=== PATIENT | male | born 1950 | race Two or more races ===

== ENCOUNTER → 2017-12-28 | Outpatient (CLI) | payer OTHER ==
[~2017-12-28] MED LIST: GLIP-116 PO; LISI-646 PO; MILK87.5 OR; SERT-274 PO
[2017-12-28 11:13] LABS: Basophils # (auto) 0.1 uL; Basophils % (auto) 1.2 % (0.0-2.0); Eosinophils # (auto) 0.3 uL; Hematocrit 45.8 % (41.0-53.0); Hemoglobin 15.7 g/dL (13.5-17.5); Lymphocytes # (auto) 1.1 uL; Mean Corpuscular Hemoglobin 34.7 pg (28.0-32.0); Mean Corpuscular Hgb Conc. 34.2 g/dL (32.0-36.0)
[2017-12-28 11:15] LABS: Eosinophils % (auto) 5.7 % (0.0-7.0); Lymphocytes % (auto) 20.3 % (10.0-50.0); Mean Corpuscular Volume 101.3 fL (80.0-100.0); Monocytes # (auto) 0.7 uL; Monocytes % (auto) 12.7 % (0.0-12.0); Neutrophils # (auto) 3.2 uL; Neutrophils % (auto) 60.1 % (37.0-80.0); Platelet Count (auto) 165 10^3/uL (140-450); Red Blood Cells 4.52 10^6/uL (4.5-5.90); White Blood Cell 5.3 10^3/uL (4.4-10.8)
[2017-12-28 11:59] LABS: Albumin 3.9 g/dL (3.4-5.0); BUN/Creatinine Ratio 17.6; Bilirubin, Total 1.1 mg/dL (0.2-1.0); Calcium 8.5 mg/dL (8.5-10.1); Potassium 4.5 mmol/L (3.5-5.1); Total Protein 7.4 g/dL (6.4-8.2)
[2017-12-28 12:08] LABS: Free T4 (Free Thyroxine) 1.1 ng/dL (0.89-1.76)
== END | disposition home or self-care (01) ==
LOC: LAB 10:52
PROVIDERS: ATTEND Internal Medicine
DX: I10 Essential (primary) hypertension (principal); E11.9 Type 2 diabetes mellitus without complications; Z79.899 Other long term (current) drug therapy
CPT/HCPCS: 36415; 80053; 80061; 82607; 83036; 84439; 84443; 85025; 85652

== ENCOUNTER 2020-09-27 14:00 | Inpatient (IN) | payer OTHER ==
[~2020-09-27] VITALS: Ht 172.7 cm; Wt 67.1 kg
[~2020-09-27 14:00] MED LIST changes: -GLIP-116 PO; +GLIP10TA9 PO
[2020-09-27] MEDS ORDERED: REMDESIVIR PER PHARMACY 0 ML IV SCH ×2 (14:30→17:15)
[2020-09-27] MEDS ORDERED: AZITHROMYCIN 500MG/ 250ML 250 ML IV ONE (14:30)
[2020-09-27] MEDS ORDERED: methylPREDNISolone SOD SUCC 125 MG/2 ML VL IV ONE (14:30)
[2020-09-27 15:08] LABS: Albumin 1.9 g/dL (3.4-5.0); Calcium 8.8 mg/dL (8.5-10.1); Potassium 4.9 mmol/L (3.5-5.1)
[2020-09-27 15:13] LABS: Lactic Acid w/Reflex 2.2 mmol/L (0.4-2.0)
[2020-09-27 15:18] LABS: BUN/Creatinine Ratio 19.3; Bilirubin, Total 0.9 mg/dL (0.2-1.0); CRP High Sensitivity 17.6 mg/dL (< 0.3); Total Protein 7.1 g/dL (6.4-8.2)
[2020-09-27 15:58] LABS: Basophils # (auto) 0.1 10 ^3/uL (0-0.2); Basophils % (auto) 0.4 % (0.0-2.0); Eosinophils # (auto) 0 10 ^3/uL (0-0.8); Eosinophils % (auto) 0.3 % (0.0-7.0); Hemoglobin 15.5 g/dL (13.5-17.5); Mean Corpuscular Hemoglobin 34.7 pg (28.0-32.0)
[2020-09-27 16:00] LABS: Hematocrit 44.8 % (41.0-53.0); Lymphocytes # (auto) 0.7 10 ^3/uL (0.4-5.4); Lymphocytes % (auto) 4.3 % (10.0-50.0); Mean Corpuscular Hgb Conc. 34.5 g/dL (32.0-36.0); Mean Corpuscular Volume 100.3 fL (80.0-100.0); Monocytes # (auto) 1.2 10 ^3/uL (0-1.3); Monocytes % (auto) 7.2 % (0.0-12.0); Neutrophils % (auto) 87.8 % (37.0-80.0); Nucleated Red Blood Cells % 0.2 %; Platelet Count (auto) 144 10^3/uL (140-450); Red Blood Cells 4.46 10^6/uL (4.5-5.90); White Blood Cell 15.9 10^3/uL (4.4-10.8)
[2020-09-27] MEDS ORDERED: ASCORBIC ACID 500 MG TAB PO ONE (16:45)
[2020-09-27] MEDS ORDERED: NITROGLYCERIN 0.4 MG SL TAB SL PRN (16:45)
[2020-09-27] MEDS ORDERED: CHOLECALCIFEROL (VITD3) 2,000 UNIT CAP PO ONE (16:45)
[2020-09-27] MEDS ORDERED: ZINC SULFATE 220mg CAP or TAB PO ONE (16:45)
[2020-09-27] MEDS ORDERED: MORPHINE SULF INJ 2 MG/ML SYRINGE 1ML IV PRN ×2 (16:45→17:15)
[2020-09-27] MEDS ORDERED: ONDANSETRON HCL 4 MG/2 ML VIAL IV PRN (17:15)
[2020-09-27] MEDS ORDERED: LACTULOSE 20Gm/30ML SOLN PO PRN (17:15)
[2020-09-27] MEDS ORDERED: TEMAZEPAM 15 MG CAP PO PRN (17:15)
[2020-09-27] MEDS ORDERED: DEXTROSE (50%) 50ML SYRG IV PRN (17:15)
[2020-09-27] MEDS ORDERED: ACETAMINOPHEN 500 MG TAB PO PRN (17:15)
[2020-09-27] MEDS ORDERED: LEVALBUTEROL HCL 1.25 MG/3 ML NEB NEB PRN (17:15)
[2020-09-27] MEDS ORDERED: traMADol HCL 50 MG TAB PO PRN (17:15)
[2020-09-27] MEDS: SODIUM CHLORIDE 0.9% 1,000 ML IV SCH (18:36)
[2020-09-27] MEDS: InsuLIN REG 1unit/0.01ml Soln (100units/ml) SC SCH (22:25)
[2020-09-27] MEDS: CLINDAMYCIN 600MG IV 50 ML IV SCH (22:37)
[2020-09-27] MEDS: FAMOTIDINE 20 MG TAB PO SCH (22:38)
[2020-09-27] MEDS: ENOXAPARIN SOD 80 MG/0.8ML SYRINGE SC SCH (22:38)
[2020-09-27] MEDS: ACCU-CHEK COMFORT CURVE STRIP VI SCH (22:38)
[2020-09-28] MEDS: SODIUM CHLORIDE 0.9% 1,000 ML IV SCH ×3 (03:30→21:34)
[2020-09-28 06:26] LABS: Basophils # (auto) 0 10 ^3/uL (0-0.2); Basophils % (auto) 0.3 % (0.0-2.0); Eosinophils # (auto) 0 10 ^3/uL (0-0.8); Lymphocytes # (auto) 0.4 10 ^3/uL (0.4-5.4); Mean Corpuscular Hemoglobin 34.6 pg (28.0-32.0); Mean Corpuscular Hgb Conc. 34.8 g/dL (32.0-36.0); Neutrophils % (auto) 91.6 % (37.0-80.0); White Blood Cell 11.2 10^3/uL (4.4-10.8)
[2020-09-28 06:35] LABS: Eosinophils % (auto) 0.1 % (0.0-7.0); Hematocrit 40.5 % (41.0-53.0); Hemoglobin 14.1 g/dL (13.5-17.5); Mean Corpuscular Volume 99.4 fL (80.0-100.0); Monocytes # (auto) 0.4 10 ^3/uL (0-1.3); Neutrophils # (auto) 10.3 10 ^3/uL (1.6-8.6); Nucleated Red Blood Cells % 0.1 %; Platelet Count (auto) 113 10^3/uL (140-450); Red Blood Cells 4.08 10^6/uL (4.5-5.90); Red Cell Distribution Width 13.1 % (11.8-14.3)
[2020-09-28 06:48] LABS: Albumin 1.7 g/dL (3.4-5.0); Calcium 8.5 mg/dL (8.5-10.1); Potassium 4.6 mmol/L (3.5-5.1)
[2020-09-28 06:51] LABS: BUN/Creatinine Ratio 24.4; Bilirubin, Total 0.5 mg/dL (0.2-1.0); Total Protein 6.3 g/dL (6.4-8.2)
[2020-09-28] MEDS: CLINDAMYCIN 600MG IV 50 ML IV SCH ×3 (07:06→21:34)
[2020-09-28] MEDS: BUDESONIDE (INHALATION) 180 MCG IH IN SCH ×3 (07:33→20:29)
[2020-09-28] MEDS: ACCU-CHEK COMFORT CURVE STRIP VI SCH ×4 (08:10→21:33)
[2020-09-28] MEDS: InsuLIN REG 1unit/0.01ml Soln (100units/ml) SC SCH ×4 (08:21→21:35)
[2020-09-28] MEDS: DexAMETHasone SOD PHOS 10MG/1ML VIAL INJ IV SCH (08:44)
[2020-09-28] MEDS: levoFLOXacin 500MG 100 ML IV SCH (08:44)
[2020-09-28] MEDS: ASCORBIC ACID 1,000 MG TAB PO SCH (08:45)
[2020-09-28] MEDS: ZINC SULFATE 220mg CAP or TAB PO SCH (08:45)
[2020-09-28] MEDS: FAMOTIDINE 20 MG TAB PO SCH ×2 (08:45→21:33)
[2020-09-28] MEDS: ENOXAPARIN SOD 80 MG/0.8ML SYRINGE SC SCH ×2 (08:46→21:33)
[2020-09-28] MEDS: CHOLECALCIFEROL (VITD3) 2,000 UNIT CAP PO SCH (08:46)
[2020-09-28] MEDS ORDERED: DOXY100C2 PO (13:05)
[2020-09-28] MEDS ORDERED: ENAL5TAB10 PO (13:05)
[2020-09-28] MEDS ORDERED: DEXA6TAB PO (13:05)
[2020-09-28] MEDS ORDERED: ASCO-75 PO (13:05)
[2020-09-28] MEDS ORDERED: ZINC220C8 PO (13:05)
[2020-09-28] MEDS ORDERED: REMDESIVIR 200 MG in NS 210ml LOADING DOSE ADULT IV ONE (15:00)
[2020-09-28 16:00] VITALS: BP 120/59
[2020-09-28] MEDS ORDERED: predniSONE 20 MG TAB PO ONE (19:00)
[2020-09-29] VITALS: BP 123/73
[2020-09-29] MEDS ORDERED: predniSONE 20 MG TAB PO ONE ×2 (01:00→07:00)
[2020-09-29] MEDS: InsuLIN REG 1unit/0.01ml Soln (100units/ml) SC SCH ×4 (05:47→21:44)
[2020-09-29] MEDS: CLINDAMYCIN 600MG IV 50 ML IV SCH ×3 (05:48→21:43)
[2020-09-29] MEDS: ACCU-CHEK COMFORT CURVE STRIP VI SCH ×4 (05:48→21:43)
[2020-09-29] MEDS ORDERED: diphenhdrAMINE HCL 25 MG CAP PO ONE (07:00)
[2020-09-29 08:00] VITALS: BP 120/76
[2020-09-29] MEDS: levoFLOXacin 500MG 100 ML IV SCH (08:59)
[2020-09-29] MEDS: DexAMETHasone SOD PHOS 10MG/1ML VIAL INJ IV SCH (08:59)
[2020-09-29] MEDS: ZINC SULFATE 220mg CAP or TAB PO SCH (09:00)
[2020-09-29] MEDS: CHOLECALCIFEROL (VITD3) 2,000 UNIT CAP PO SCH (09:00)
[2020-09-29] MEDS: FAMOTIDINE 20 MG TAB PO SCH ×2 (09:00→21:43)
[2020-09-29] MEDS: ASCORBIC ACID 1,000 MG TAB PO SCH (09:00)
[2020-09-29] MEDS: ENOXAPARIN SOD 80 MG/0.8ML SYRINGE SC SCH ×2 (09:01→21:43)
[2020-09-29] MEDS: SODIUM CHLORIDE 0.9% 1,000 ML IV SCH ×2 (09:01→18:45)
[2020-09-29] MEDS: BUDESONIDE (INHALATION) 180 MCG IH IN SCH ×2 (10:29→19:25)
[2020-09-29 12:44] LABS: Albumin 1.7 g/dL (3.4-5.0); Calcium 8.1 mg/dL (8.5-10.1); Potassium 4.4 mmol/L (3.5-5.1)
[2020-09-29 12:49] LABS: BUN/Creatinine Ratio 29.9; Bilirubin, Total 0.5 mg/dL (0.2-1.0); Total Protein 5.9 g/dL (6.4-8.2)
[2020-09-29] MEDS: REMDESIVIR 100mg 100 MG in SODIUM CHL 0.9% 230 ML IV SCH (15:40)
[2020-09-29 16:00] VITALS: BP 135/66
[2020-09-30] VITALS: BP 124/55
[2020-09-30] MEDS: CLINDAMYCIN 600MG IV 50 ML IV SCH ×3 (05:32→21:51)
[2020-09-30] MEDS: SODIUM CHLORIDE 0.9% 1,000 ML IV SCH ×2 (05:32→18:01)
[2020-09-30] MEDS: InsuLIN REG 1unit/0.01ml Soln (100units/ml) SC SCH ×4 (06:29→21:52)
[2020-09-30] MEDS: ACCU-CHEK COMFORT CURVE STRIP VI SCH ×4 (06:29→21:51)
[2020-09-30 07:59] VITALS: BP 118/64
[2020-09-30] MEDS: BUDESONIDE (INHALATION) 180 MCG IH IN SCH ×2 (08:10→19:07)
[2020-09-30 08:21] LABS: Potassium 4.3 mmol/L (3.5-5.1)
[2020-09-30 08:27] LABS: Albumin 1.8 g/dL (3.4-5.0); Bilirubin, Total 0.6 mg/dL (0.2-1.0); Calcium 8.6 mg/dL (8.5-10.1); Total Protein 6.1 g/dL (6.4-8.2)
[2020-09-30] MEDS: levoFLOXacin 500MG 100 ML IV SCH (09:58)
[2020-09-30] MEDS: FAMOTIDINE 20 MG TAB PO SCH ×2 (09:58→21:51)
[2020-09-30] MEDS: ZINC SULFATE 220mg CAP or TAB PO SCH (09:58)
[2020-09-30] MEDS: DexAMETHasone SOD PHOS 10MG/1ML VIAL INJ IV SCH (09:58)
[2020-09-30] MEDS: ASCORBIC ACID 1,000 MG TAB PO SCH (09:58)
[2020-09-30] MEDS: ENOXAPARIN SOD 80 MG/0.8ML SYRINGE SC SCH ×2 (09:59→21:51)
[2020-09-30] MEDS: CHOLECALCIFEROL (VITD3) 2,000 UNIT CAP PO SCH (09:59)
[2020-09-30] MEDS: REMDESIVIR 100mg 100 MG in SODIUM CHL 0.9% 230 ML IV SCH (15:42)
[2020-09-30 16:00] VITALS: BP 111/47
[2020-10-01] VITALS: BP 118/55
[2020-10-01] MEDS: SODIUM CHLORIDE 0.9% 1,000 ML IV SCH ×2 (01:40→14:49)
[2020-10-01] MEDS: CLINDAMYCIN 600MG IV 50 ML IV SCH ×2 (06:34→14:50)
[2020-10-01] MEDS: InsuLIN REG 1unit/0.01ml Soln (100units/ml) SC SCH ×4 (06:34→22:00)
[2020-10-01] MEDS: ACCU-CHEK COMFORT CURVE STRIP VI SCH ×4 (06:34→22:00)
[2020-10-01 06:41] LABS: Basophils # (auto) 0 10 ^3/uL (0-0.2); Basophils % (auto) 0.2 % (0.0-2.0); Eosinophils # (auto) 0 10 ^3/uL (0-0.8); Eosinophils % (auto) 0.4 % (0.0-7.0); Hematocrit 41.1 % (41.0-53.0); Lymphocytes # (auto) 0.5 10 ^3/uL (0.4-5.4); Lymphocytes % (auto) 4.1 % (10.0-50.0); Mean Corpuscular Volume 99.9 fL (80.0-100.0); Monocytes # (auto) 0.6 10 ^3/uL (0-1.3); Monocytes % (auto) 5.1 % (0.0-12.0); Neutrophils # (auto) 11.4 10 ^3/uL (1.6-8.6); Neutrophils % (auto) 90.2 % (37.0-80.0); Nucleated Red Blood Cells % 0.1 %; Platelet Count (auto) 115 10^3/uL (140-450); Red Blood Cells 4.11 10^6/uL (4.5-5.90); Red Cell Distribution Width 13.1 % (11.8-14.3); White Blood Cell 12.7 10^3/uL (4.4-10.8)
[2020-10-01] MEDS: BUDESONIDE (INHALATION) 180 MCG IH IN SCH ×2 (06:45→19:19)
[2020-10-01 07:01] LABS: INR 1.29 (0.9-1.15); Partial Thromboplastin Time 33.2 sec (23.0-31.2)
[2020-10-01 07:13] LABS: Potassium 3.8 mmol/L (3.5-5.1)
[2020-10-01 07:21] LABS: Albumin 1.7 g/dL (3.4-5.0); Bilirubin, Total 0.6 mg/dL (0.2-1.0); Calcium 7.7 mg/dL (8.5-10.1); Magnesium 1.9 mg/dL (1.6-2.6); Phosphorus 2.6 mg/dL (2.5-4.90); Total Protein 5.6 g/dL (6.4-8.2)
[2020-10-01 08:00] VITALS: BP 127/81
[2020-10-01] MEDS: levoFLOXacin 500MG 100 ML IV SCH (09:39)
[2020-10-01] MEDS: DexAMETHasone SOD PHOS 10MG/1ML VIAL INJ IV SCH (09:39)
[2020-10-01] MEDS: ZINC SULFATE 220mg CAP or TAB PO SCH (09:39)
[2020-10-01] MEDS: ENOXAPARIN SOD 80 MG/0.8ML SYRINGE SC SCH ×2 (09:40→22:00)
[2020-10-01] MEDS: CHOLECALCIFEROL (VITD3) 2,000 UNIT CAP PO SCH (09:40)
[2020-10-01] MEDS: ASCORBIC ACID 1,000 MG TAB PO SCH (09:40)
[2020-10-01] MEDS: FAMOTIDINE 20 MG TAB PO SCH (10:00)
[2020-10-01] MEDS ORDERED: INSULIN LANTUS (GLARGINE) 1 /0.01ml (100units/ml) SC ONE (10:45)
[2020-10-01 16:00] VITALS: BP 113/60
[2020-10-01] MEDS: REMDESIVIR 100mg 100 MG in SODIUM CHL 0.9% 230 ML IV SCH (16:48)
[2020-10-01] MEDS ORDERED: POLYETHYLENE GLYCOL 17 GM PWDR PO ONE (17:15)
[2020-10-01] MEDS ORDERED: ALBUTEROL SULF HFA 90MCG INH 200DOSE IN SCH (22:00)
[2020-10-02] VITALS: BP 125/69
[2020-10-02] MEDS: FAMOTIDINE 20 MG TAB PO SCH ×3 (04:09→22:26)
[2020-10-02 05:36] LABS: Urine Amorphous Crystal FEW /hpf (None Seen); Urine Bacteria FEW /hpf (None Seen); Urine Blood Negative /uL (Negative); Urine Specific Gravity 1.024 (1.001-1.035); Urine WBC 1 /hpf (0 - 3)
[2020-10-02 06:52] LABS: Basophils # (auto) 0.1 10 ^3/uL (0-0.2); Eosinophils # (auto) 0.1 10 ^3/uL (0-0.8); Eosinophils % (auto) 0.9 % (0.0-7.0); Lymphocytes # (auto) 0.6 10 ^3/uL (0.4-5.4); Lymphocytes % (auto) 4.2 % (10.0-50.0); Monocytes # (auto) 0.7 10 ^3/uL (0-1.3)
[2020-10-02 06:54] LABS: Basophils % (auto) 0.7 % (0.0-2.0); Hematocrit 40.9 % (41.0-53.0); Mean Corpuscular Hemoglobin 33.9 pg (28.0-32.0); Mean Corpuscular Hgb Conc. 34.2 g/dL (32.0-36.0); Mean Corpuscular Volume 99.3 fL (80.0-100.0); Neutrophils # (auto) 11.9 10 ^3/uL (1.6-8.6); Neutrophils % (auto) 89.2 % (37.0-80.0); Platelet Count (auto) 125 10^3/uL (140-450); Red Blood Cells 4.12 10^6/uL (4.5-5.90); Red Cell Distribution Width 12.9 % (11.8-14.3); White Blood Cell 13.4 10^3/uL (4.4-10.8)
[2020-10-02] MEDS: InsuLIN REG 1unit/0.01ml Soln (100units/ml) SC SCH ×4 (06:54→22:27)
[2020-10-02] MEDS: ACCU-CHEK COMFORT CURVE STRIP VI SCH ×4 (06:55→22:27)
[2020-10-02 07:09] LABS: Albumin 1.7 g/dL (3.4-5.0); Potassium 4.2 mmol/L (3.5-5.1)
[2020-10-02 07:25] LABS: Bilirubin, Total 0.7 mg/dL (0.2-1.0); CRP High Sensitivity 8.39 mg/dL (< 0.3); Total Protein 5.6 g/dL (6.4-8.2)
[2020-10-02] MEDS: BUDESONIDE (INHALATION) 180 MCG IH IN SCH ×2 (07:28→19:30)
[2020-10-02 08:00] VITALS: BP 127/72
[2020-10-02] MEDS: POLYETHYLENE GLYCOL 17 GM PWDR PO SCH (10:00)
[2020-10-02] MEDS: DexAMETHasone SOD PHOS 10MG/1ML VIAL INJ IV SCH (10:35)
[2020-10-02] MEDS: ERGOCALCIFEROL 50,000 UNIT(1.25MG) CAP PO SCH (10:36)
[2020-10-02] MEDS: ASCORBIC ACID 1,000 MG TAB PO SCH (10:36)
[2020-10-02] MEDS: ENOXAPARIN SOD 80 MG/0.8ML SYRINGE SC SCH ×2 (10:36→22:26)
[2020-10-02] MEDS: levoFLOXacin 500MG 100 ML IV SCH (10:36)
[2020-10-02] MEDS: ZINC SULFATE 220mg CAP or TAB PO SCH (10:36)
[2020-10-02] MEDS: CHOLECALCIFEROL (VITD3) 2,000 UNIT CAP PO SCH (10:36)
[2020-10-02] MEDS ORDERED: FUROSEMIDE 40 MG/4 ML VIAL IV ONE (12:00)
[2020-10-02 12:14] LABS: Cholesterol 99 mg/dL (< 200)
[2020-10-02 12:17] LABS: HDL Cholesterol 38 mg/dL (40-59); LDL Cholesterol 52 mg/dL (< 100); Triglycerides 46 mg/dL (< 150)
[2020-10-02] MEDS: REMDESIVIR 100mg 100 MG in SODIUM CHL 0.9% 230 ML IV SCH (15:00)
[2020-10-02 16:00] VITALS: BP 108/79
[2020-10-03] VITALS: BP 122/76
[2020-10-03] MEDS: InsuLIN REG 1unit/0.01ml Soln (100units/ml) SC SCH ×4 (06:52→22:10)
[2020-10-03] MEDS: ACCU-CHEK COMFORT CURVE STRIP VI SCH ×4 (06:53→22:09)
[2020-10-03] MEDS: BUDESONIDE (INHALATION) 180 MCG IH IN SCH ×2 (07:36→22:09)
[2020-10-03 08:00] VITALS: BP 127/77
[2020-10-03] MEDS: POLYETHYLENE GLYCOL 17 GM PWDR PO SCH (10:00)
[2020-10-03] MEDS: DexAMETHasone SOD PHOS 10MG/1ML VIAL INJ IV SCH (10:45)
[2020-10-03] MEDS: ZINC SULFATE 220mg CAP or TAB PO SCH (10:45)
[2020-10-03] MEDS: levoFLOXacin 500 MG TAB PO SCH (10:46)
[2020-10-03] MEDS: CHOLECALCIFEROL (VITD3) 2,000 UNIT CAP PO SCH (10:46)
[2020-10-03] MEDS: FAMOTIDINE 20 MG TAB PO SCH ×2 (10:46→22:09)
[2020-10-03] MEDS: ENOXAPARIN SOD 80 MG/0.8ML SYRINGE SC SCH ×2 (10:46→22:09)
[2020-10-03] MEDS: ASCORBIC ACID 1,000 MG TAB PO SCH (10:46)
[2020-10-03 16:00] VITALS: BP 102/54
[2020-10-04] VITALS: BP 138/67
[2020-10-04] MEDS: ACCU-CHEK COMFORT CURVE STRIP VI SCH ×4 (06:21→22:06)
[2020-10-04] MEDS: InsuLIN REG 1unit/0.01ml Soln (100units/ml) SC SCH ×4 (06:21→22:06)
[2020-10-04 07:13] LABS: Basophils # (auto) 0 10 ^3/uL (0-0.2); Basophils % (auto) 0.3 % (0.0-2.0); Eosinophils # (auto) 0.1 10 ^3/uL (0-0.8); Eosinophils % (auto) 0.6 % (0.0-7.0); Hemoglobin 14.3 g/dL (13.5-17.5); Lymphocytes # (auto) 0.7 10 ^3/uL (0.4-5.4); Lymphocytes % (auto) 5.9 % (10.0-50.0); Mean Corpuscular Hemoglobin 33.9 pg (28.0-32.0); Mean Corpuscular Volume 99.9 fL (80.0-100.0); Monocytes % (auto) 8.7 % (0.0-12.0); Neutrophils # (auto) 9.9 10 ^3/uL (1.6-8.6); Neutrophils % (auto) 84.5 % (37.0-80.0); Nucleated Red Blood Cells % 0.1 %; Platelet Count (auto) 209 10^3/uL (140-450); Red Cell Distribution Width 13.3 % (11.8-14.3); White Blood Cell 11.8 10^3/uL (4.4-10.8)
[2020-10-04] MEDS: BUDESONIDE (INHALATION) 180 MCG IH IN SCH ×2 (07:14→21:55)
[2020-10-04 07:24] LABS: Albumin 1.8 g/dL (3.4-5.0); Calcium 8.4 mg/dL (8.5-10.1); INR 1.15 (0.9-1.15); Magnesium 2.3 mg/dL (1.6-2.6); Partial Thromboplastin Time 31.1 sec (23.0-31.2); Potassium 4.5 mmol/L (3.5-5.1)
[2020-10-04 07:32] LABS: BUN/Creatinine Ratio 23.2; Bilirubin, Total 0.9 mg/dL (0.2-1.0); CRP High Sensitivity 9.12 mg/dL (< 0.3); Phosphorus 3.2 mg/dL (2.5-4.90); Total Protein 6.3 g/dL (6.4-8.2)
[2020-10-04 08:00] VITALS: BP 138/69
[2020-10-04] MEDS: DexAMETHasone SOD PHOS 10MG/1ML VIAL INJ IV SCH (10:29)
[2020-10-04] MEDS: FAMOTIDINE 20 MG TAB PO SCH ×2 (10:29→22:00)
[2020-10-04] MEDS: POLYETHYLENE GLYCOL 17 GM PWDR PO SCH (10:29)
[2020-10-04] MEDS: levoFLOXacin 500 MG TAB PO SCH (10:29)
[2020-10-04] MEDS: ZINC SULFATE 220mg CAP or TAB PO SCH (10:29)
[2020-10-04] MEDS: ENOXAPARIN SOD 80 MG/0.8ML SYRINGE SC SCH ×2 (10:30→22:11)
[2020-10-04] MEDS: CHOLECALCIFEROL (VITD3) 2,000 UNIT CAP PO SCH (10:30)
[2020-10-04] MEDS: ASCORBIC ACID 1,000 MG TAB PO SCH (10:30)
[2020-10-04 16:00] VITALS: BP 106/68
[2020-10-05] VITALS: BP 128/78
[2020-10-05] MEDS: InsuLIN REG 1unit/0.01ml Soln (100units/ml) SC SCH ×4 (05:41→22:11)
[2020-10-05] MEDS: ACCU-CHEK COMFORT CURVE STRIP VI SCH ×4 (05:42→22:00)
[2020-10-05 08:00] VITALS: BP 130/74
[2020-10-05 08:43] LABS: Potassium 4.5 mmol/L (3.5-5.1)
[2020-10-05 09:10] LABS: Bilirubin, Total 0.9 mg/dL (0.2-1.0); CRP High Sensitivity 4.99 mg/dL (< 0.3); Calcium 8.5 mg/dL (8.5-10.1); Total Protein 6.6 g/dL (6.4-8.2)
[2020-10-05] MEDS: levoFLOXacin 500 MG TAB PO SCH (09:34)
[2020-10-05] MEDS: ZINC SULFATE 220mg CAP or TAB PO SCH (09:34)
[2020-10-05] MEDS: DexAMETHasone SOD PHOS 10MG/1ML VIAL INJ IV SCH (09:34)
[2020-10-05] MEDS: POLYETHYLENE GLYCOL 17 GM PWDR PO SCH (09:35)
[2020-10-05] MEDS: FAMOTIDINE 20 MG TAB PO SCH ×2 (09:36→21:59)
[2020-10-05] MEDS: ASCORBIC ACID 1,000 MG TAB PO SCH (09:36)
[2020-10-05] MEDS: CHOLECALCIFEROL (VITD3) 2,000 UNIT CAP PO SCH (09:36)
[2020-10-05] MEDS: ENOXAPARIN SOD 80 MG/0.8ML SYRINGE SC SCH ×2 (09:37→22:01)
[2020-10-05] MEDS: BUDESONIDE (INHALATION) 180 MCG IH IN SCH ×2 (10:45→20:46)
[2020-10-05 15:19] VITALS: BP 142/92
[2020-10-05 15:36] VITALS: BP 132/75
[2020-10-05 16:00] VITALS: BP 142/92
[2020-10-05 17:56] VITALS: BP 132/69
[2020-10-06] VITALS: BP_SYST 136; BP_SYST 139; BP_DIAS 73; BP_DIAS 82
[2020-10-06] MEDS: BUDESONIDE (INHALATION) 180 MCG IH IN SCH ×2 (06:41→18:10)
[2020-10-06] MEDS: ACCU-CHEK COMFORT CURVE STRIP VI SCH ×4 (06:43→22:28)
[2020-10-06] MEDS: InsuLIN REG 1unit/0.01ml Soln (100units/ml) SC SCH ×4 (06:43→22:00)
[2020-10-06 08:00] VITALS: BP 134/75
[2020-10-06] MEDS: POLYETHYLENE GLYCOL 17 GM PWDR PO SCH (10:00)
[2020-10-06] MEDS: DexAMETHasone SOD PHOS 10MG/1ML VIAL INJ IV SCH (10:04)
[2020-10-06] MEDS: levoFLOXacin 500 MG TAB PO SCH (10:04)
[2020-10-06] MEDS: ZINC SULFATE 220mg CAP or TAB PO SCH (10:04)
[2020-10-06] MEDS: FAMOTIDINE 20 MG TAB PO SCH ×2 (10:05→22:00)
[2020-10-06] MEDS: ASCORBIC ACID 1,000 MG TAB PO SCH (10:05)
[2020-10-06] MEDS: CHOLECALCIFEROL (VITD3) 2,000 UNIT CAP PO SCH (10:05)
[2020-10-06] MEDS: ENOXAPARIN SOD 80 MG/0.8ML SYRINGE SC SCH ×2 (10:05→22:30)
[2020-10-06 16:00] VITALS: BP 124/76
[2020-10-06 23:54] VITALS: BP 148/87
[2020-10-07] MEDS: ACCU-CHEK COMFORT CURVE STRIP VI SCH ×4 (06:22→21:06)
[2020-10-07] MEDS: InsuLIN REG 1unit/0.01ml Soln (100units/ml) SC SCH ×4 (06:27→21:40)
[2020-10-07 08:00] VITALS: BP 137/80
[2020-10-07] MEDS: DexAMETHasone SOD PHOS 10MG/1ML VIAL INJ IV SCH (09:57)
[2020-10-07] MEDS: FAMOTIDINE 20 MG TAB PO SCH ×2 (10:00→21:05)
[2020-10-07] MEDS: levoFLOXacin 500 MG TAB PO SCH (10:00)
[2020-10-07] MEDS: BUDESONIDE (INHALATION) 180 MCG IH IN SCH ×2 (10:00→20:10)
[2020-10-07] MEDS: CHOLECALCIFEROL (VITD3) 2,000 UNIT CAP PO SCH (10:00)
[2020-10-07] MEDS: ZINC SULFATE 220mg CAP or TAB PO SCH (10:00)
[2020-10-07] MEDS: ASCORBIC ACID 1,000 MG TAB PO SCH (10:00)
[2020-10-07] MEDS: POLYETHYLENE GLYCOL 17 GM PWDR PO SCH (10:00)
[2020-10-07] MEDS: ENOXAPARIN SOD 80 MG/0.8ML SYRINGE SC SCH ×2 (10:00→21:06)
[2020-10-07] MEDS ORDERED: levoFLOXacin 500 MG TAB PO SCH (13:36)
[2020-10-07] MEDS ORDERED: guaiFENesin-DM 100/10mg/5ml SYR PO PRN (15:00)
[2020-10-07] MEDS ORDERED: PIPERACILLIN-TAZO 4.5GM 100 ML IV ONE (15:00)
[2020-10-07 16:00] VITALS: BP 128/82
[2020-10-07] MEDS: PIPERACILLIN-TAZOB 3.375GM 100 ML IV SCH (23:33)
[2020-10-08] VITALS: BP 121/67
[2020-10-08] MEDS: PIPERACILLIN-TAZOB 3.375GM 100 ML IV SCH ×4 (05:22→23:31)
[2020-10-08] MEDS: ACCU-CHEK COMFORT CURVE STRIP VI SCH ×4 (06:27→21:19)
[2020-10-08] MEDS: InsuLIN REG 1unit/0.01ml Soln (100units/ml) SC SCH ×4 (06:28→22:15)
[2020-10-08 07:24] LABS: Basophils # (auto) 0 10 ^3/uL (0-0.2); Basophils % (auto) 0.1 % (0.0-2.0); Eosinophils # (auto) 0 10 ^3/uL (0-0.8); Eosinophils % (auto) 0.3 % (0.0-7.0); Hematocrit 43.3 % (41.0-53.0); Hemoglobin 14.8 g/dL (13.5-17.5); Lymphocytes # (auto) 0.8 10 ^3/uL (0.4-5.4); Lymphocytes % (auto) 5.6 % (10.0-50.0); Mean Corpuscular Hgb Conc. 34.2 g/dL (32.0-36.0); Mean Corpuscular Volume 99.5 fL (80.0-100.0); Monocytes # (auto) 1.1 10 ^3/uL (0-1.3); Monocytes % (auto) 7.3 % (0.0-12.0); Neutrophils # (auto) 12.9 10 ^3/uL (1.6-8.6); Neutrophils % (auto) 86.7 % (37.0-80.0); Platelet Count (auto) 307 10^3/uL (140-450); Red Blood Cells 4.36 10^6/uL (4.5-5.90); White Blood Cell 14.9 10^3/uL (4.4-10.8)
[2020-10-08 07:36] LABS: Potassium 4.2 mmol/L (3.5-5.1)
[2020-10-08 07:51] LABS: Albumin 2.1 g/dL (3.4-5.0); BUN/Creatinine Ratio 21.6; CRP High Sensitivity 0.9 mg/dL (< 0.3); Calcium 8.2 mg/dL (8.5-10.1); Total Protein 6.2 g/dL (6.4-8.2)
[2020-10-08 08:00] VITALS: BP 102/70
[2020-10-08] MEDS: FAMOTIDINE 20 MG TAB PO SCH ×2 (10:00→21:18)
[2020-10-08] MEDS: ZINC SULFATE 220mg CAP or TAB PO SCH (10:00)
[2020-10-08] MEDS: POLYETHYLENE GLYCOL 17 GM PWDR PO SCH (10:00)
[2020-10-08] MEDS: BUDESONIDE (INHALATION) 180 MCG IH IN SCH ×2 (10:27→19:27)
[2020-10-08] MEDS: CHOLECALCIFEROL (VITD3) 2,000 UNIT CAP PO SCH (10:54)
[2020-10-08] MEDS: DexAMETHasone SOD PHOS 10MG/1ML VIAL INJ IV SCH (10:54)
[2020-10-08] MEDS: ENOXAPARIN SOD 80 MG/0.8ML SYRINGE SC SCH ×2 (10:54→21:18)
[2020-10-08] MEDS: ASCORBIC ACID 1,000 MG TAB PO SCH (10:56)
[2020-10-08 16:00] VITALS: BP 127/78
[2020-10-09] VITALS: BP 123/83
[2020-10-09] MEDS: PIPERACILLIN-TAZOB 3.375GM 100 ML IV SCH ×4 (06:13→23:41)
[2020-10-09] MEDS: InsuLIN REG 1unit/0.01ml Soln (100units/ml) SC SCH ×4 (06:13→21:43)
[2020-10-09] MEDS: ACCU-CHEK COMFORT CURVE STRIP VI SCH ×4 (06:14→21:43)
[2020-10-09 08:00] VITALS: BP 100/64
[2020-10-09] MEDS: BUDESONIDE (INHALATION) 180 MCG IH IN SCH ×2 (09:55→20:31)
[2020-10-09] MEDS: ZINC SULFATE 220mg CAP or TAB PO SCH (10:00)
[2020-10-09] MEDS: CHOLECALCIFEROL (VITD3) 2,000 UNIT CAP PO SCH (10:00)
[2020-10-09] MEDS: POLYETHYLENE GLYCOL 17 GM PWDR PO SCH (10:00)
[2020-10-09] MEDS: FAMOTIDINE 20 MG TAB PO SCH ×2 (10:00→21:42)
[2020-10-09] MEDS: ASCORBIC ACID 1,000 MG TAB PO SCH (10:38)
[2020-10-09] MEDS: DexAMETHasone SOD PHOS 10MG/1ML VIAL INJ IV SCH (10:39)
[2020-10-09] MEDS: ENOXAPARIN SOD 80 MG/0.8ML SYRINGE SC SCH ×2 (10:39→21:42)
[2020-10-09] MEDS: ERGOCALCIFEROL 50,000 UNIT(1.25MG) CAP PO SCH (10:40)
[2020-10-09 15:42] VITALS: BP 128/69
[2020-10-09 23:36] VITALS: BP 117/78
[2020-10-10] MEDS: PIPERACILLIN-TAZOB 3.375GM 100 ML IV SCH ×4 (06:06→23:56)
[2020-10-10] MEDS: BUDESONIDE (INHALATION) 180 MCG IH IN SCH ×2 (06:46→21:23)
[2020-10-10] MEDS: ACCU-CHEK COMFORT CURVE STRIP VI SCH ×4 (06:56→22:01)
[2020-10-10] MEDS: InsuLIN REG 1unit/0.01ml Soln (100units/ml) SC SCH ×4 (06:56→22:02)
[2020-10-10 08:00] VITALS: BP 110/56
[2020-10-10] MEDS: DexAMETHasone SOD PHOS 10MG/1ML VIAL INJ IV SCH (09:47)
[2020-10-10] MEDS: POLYETHYLENE GLYCOL 17 GM PWDR PO SCH (09:48)
[2020-10-10] MEDS: FAMOTIDINE 20 MG TAB PO SCH ×3 (09:48→22:01)
[2020-10-10] MEDS: ZINC SULFATE 220mg CAP or TAB PO SCH (09:48)
[2020-10-10] MEDS: CHOLECALCIFEROL (VITD3) 2,000 UNIT CAP PO SCH (09:49)
[2020-10-10] MEDS: ASCORBIC ACID 1,000 MG TAB PO SCH (09:49)
[2020-10-10] MEDS: ENOXAPARIN SOD 80 MG/0.8ML SYRINGE SC SCH ×2 (09:49→22:01)
[2020-10-10 16:00] VITALS: BP 119/71
[2020-10-11] VITALS: BP 123/75
[2020-10-11] MEDS: PIPERACILLIN-TAZOB 3.375GM 100 ML IV SCH ×4 (05:43→23:53)
[2020-10-11] MEDS: InsuLIN REG 1unit/0.01ml Soln (100units/ml) SC SCH ×4 (06:33→21:11)
[2020-10-11] MEDS: ACCU-CHEK COMFORT CURVE STRIP VI SCH ×4 (06:33→21:11)
[2020-10-11] MEDS: BUDESONIDE (INHALATION) 180 MCG IH IN SCH ×2 (06:45→19:43)
[2020-10-11 08:00] VITALS: BP 108/69
[2020-10-11] MEDS: DexAMETHasone SOD PHOS 10MG/1ML VIAL INJ IV SCH (09:59)
[2020-10-11] MEDS: ZINC SULFATE 220mg CAP or TAB PO SCH (10:00)
[2020-10-11] MEDS: POLYETHYLENE GLYCOL 17 GM PWDR PO SCH (10:00)
[2020-10-11] MEDS: CHOLECALCIFEROL (VITD3) 2,000 UNIT CAP PO SCH (10:01)
[2020-10-11] MEDS: FAMOTIDINE 20 MG TAB PO SCH ×3 (10:01→21:13)
[2020-10-11] MEDS: ASCORBIC ACID 1,000 MG TAB PO SCH (10:01)
[2020-10-11] MEDS: ENOXAPARIN SOD 80 MG/0.8ML SYRINGE SC SCH ×2 (10:02→21:10)
[2020-10-11 15:59] VITALS: BP 117/82
[2020-10-11 22:24] VITALS: BP 122/76
[2020-10-11 23:54] VITALS: BP 122/76
[2020-10-12] MEDS: ACCU-CHEK COMFORT CURVE STRIP VI SCH ×3 (06:19→17:14)
[2020-10-12] MEDS: PIPERACILLIN-TAZOB 3.375GM 100 ML IV SCH ×3 (06:19→18:00)
[2020-10-12] MEDS: InsuLIN REG 1unit/0.01ml Soln (100units/ml) SC SCH ×3 (06:20→17:14)
[2020-10-12] MEDS: BUDESONIDE (INHALATION) 180 MCG IH IN SCH (07:42)
[2020-10-12 08:00] VITALS: BP 115/71
[2020-10-12] MEDS: ZINC SULFATE 220mg CAP or TAB PO SCH (09:24)
[2020-10-12] MEDS: FAMOTIDINE 20 MG TAB PO SCH (09:24)
[2020-10-12] MEDS: ASCORBIC ACID 1,000 MG TAB PO SCH (09:24)
[2020-10-12] MEDS: DexAMETHasone SOD PHOS 10MG/1ML VIAL INJ IV SCH (09:24)
[2020-10-12] MEDS: CHOLECALCIFEROL (VITD3) 2,000 UNIT CAP PO SCH (09:24)
[2020-10-12] MEDS: ENOXAPARIN SOD 80 MG/0.8ML SYRINGE SC SCH (09:25)
[2020-10-12] MEDS: POLYETHYLENE GLYCOL 17 GM PWDR PO SCH (09:36)
[2020-10-12 16:00] VITALS: BP 117/77
[2020-10-12 17:52] VITALS: BP 117/77
== END 2020-10-12 18:40 | disposition home or self-care (01) | DRG 871 ==
LOC: EDBD 14:00 → EDSEX 14:00 → ER 14:00 → TELE 14:01 → TELE-EAST 09-28 11:08
PROVIDERS: ADMIT Internal Medicine; ATTEND Internal Medicine
PROC: XW033E5 Introduction of Remdesivir Anti-infective into Peripheral Vein, Percutaneous Approach, New Technology Group 5 (ICD-10-PCS; 2020-09-28)
PROC: XW13325 Transfusion of Convalescent Plasma (Nonautologous) into Peripheral Vein, Percutaneous Approach, New Technology Group 5 (ICD-10-PCS; principal; 2020-10-05)
DX: A41.89 Other specified sepsis (principal); U07.1 COVID-19; J96.01 Acute respiratory failure with hypoxia; J12.82 Pneumonia due to coronavirus disease 2019; D68.59 Other primary thrombophilia; E88.09 Other disorders of plasma-protein metabolism, not elsewhere classified; E11.65 Type 2 diabetes mellitus with hyperglycemia; E55.9 Vitamin D deficiency, unspecified; I25.2 Old myocardial infarction; Z82.49 Family history of ischemic heart disease and other diseases of the circulatory system; Z95.5 Presence of coronary angioplasty implant and graft; I25.10 Atherosclerotic heart disease of native coronary artery without angina pectoris; I25.5 Ischemic cardiomyopathy; Z88.8 Allergy status to other drugs, medicaments and biological substances; Z91.041 Radiographic dye allergy status
CPT/HCPCS: 36415; 71045; 80053; 80061; 81001; 82043; 82270; 82306; 82728; 82962; 83036; 83605; 83615; 83735; 83880; 84100; 84484; 85025; 85379; 85610; 85730; 86141; 86850; 86900; 86901; 87040; 87426; 93005; 93970; 94640; 96365; 96366; 96375; 99291; G0378; J1100; J1815; J1956; J2543; J3490

== ENCOUNTER → 2022-09-04 | Outpatient (CLI) | payer OTHER ==
[~2022-09-04] MED LIST changes: +ASCO-75 PO; +DEXA6TAB PO; +DOXY100C2 PO; +ENAL5TAB10 PO; -LISI-646 PO; +LISI20TA28 PO; -SERT-274 PO; +SERT50TA19 PO; +ZINC220C8 PO
[2022-09-04 11:13] LABS: Cholesterol 188 mg/dL (< 200); HDL Cholesterol 59 mg/dL (40-59); LDL Cholesterol 124 mg/dL (< 100); Triglycerides 82 mg/dL (< 150)
[2022-09-04 11:21] LABS: Free T4 (Free Thyroxine) 0.98 ng/dL (0.89-1.76); Prostate Specific Antigen 10.16 ng/mL (0.0-4.0)
== END | disposition home or self-care (01) ==
LOC: LAB 10:16
PROVIDERS: ATTEND Internal Medicine
DX: E11.9 Type 2 diabetes mellitus without complications (principal); I25.10 Atherosclerotic heart disease of native coronary artery without angina pectoris; N40.1 Benign prostatic hyperplasia with lower urinary tract symptoms; I10 Essential (primary) hypertension
CPT/HCPCS: 36415; 80061; 83036; 84153; 84439; 84443

== ENCOUNTER → 2022-12-05 | Outpatient (CLI) | payer OTHER ==
[2022-12-05 11:37] LABS: Urine Bacteria NONE SEEN /hpf (None Seen); Urine Blood TRACE /uL (Negative); Urine Mucus FEW (None Seen); Urine Specific Gravity 1.021 (1.001-1.035); Urine WBC 3 /hpf (0 - 3)
[2022-12-05 11:47] LABS: BUN/Creatinine Ratio 19.7; Calcium 8.6 mg/dL (8.5-10.1)
== END | disposition home or self-care (01) ==
LOC: LAB 10:55
PROVIDERS: ATTEND Internal Medicine
DX: E11.9 Type 2 diabetes mellitus without complications (principal); I10 Essential (primary) hypertension; R31.9 Hematuria, unspecified
CPT/HCPCS: 36415; 80048; 81001; 82550

== ENCOUNTER → 2022-12-11 | Outpatient (CLI) | payer OTHER | END | disposition home or self-care (01) | LOC: LAB 13:39 | PROVIDERS: ATTEND Internal Medicine | DX: Z12.11 Encounter for screening for malignant neoplasm of colon (principal) | CPT/HCPCS: 82270 ==

== ENCOUNTER → 2023-02-05 | Outpatient (CLI) | payer OTHER ==
[~2023-02-05] MED LIST changes: -ASCO-75 PO; +ASCO500T6 PO; +BACDST PO; -DOXY100C2 PO; +DOXY100C4 PO; -ENAL5TAB10 PO; +ENAL5TAB22 PO; -LISI20TA28 PO; +LISI20TA56 PO; +SERT-206 PO; -SERT50TA19 PO
== END | disposition home or self-care (01) ==
LOC: LAB 12:09
PROVIDERS: ATTEND Urology
DX: R97.20 Elevated prostate specific antigen [PSA] (principal)
CPT/HCPCS: 84153